=== PATIENT | female | born 1995 | race African-American/Black ===

== ENCOUNTER 2016-11-09 19:18 | Inpatient (IN) | payer OTHER ==
--- NOTE | ~2016-11-09 | DS ---
Unit #: [id number] #: [id number] Patient: CHEYENNE TREJO [id number] [place] [address] [id number] MR#: [id number] NAME: CHEYNENE TREJO. ROOM: P176 Age: 21 Sex: F Admission Date: 11/09/2016 : 1995 Discharge Date: 11/11/2016 Attending Physician: Moe Oliva M.D. Primary Care Physician: Primary Care Physician No DISCHARGE SUMMARY REASON FOR ADMISSION The patient is a 21-year-old female, admitted to the [address] [place] [address] unit with complaints of depressed mood and increased cannabis use. HOSPITAL COURSE The patient was admitted to [facility] unit and placed on suicide precautions. vitamins were continued as the patient is 7 weeks' . On the initial day of evaluation, this physician could not arouse the patient. Later that day, the patient did ask to leave the hospital, but agreed to remain until this physician could evaluate her on 11/11/2016. The patient was in brighter spirits and denied suicidal ideation. She was in agreement with the plan for followup in the intensive outpatient program provided by this facility given her first trimester status. No psychotropic medication was ordered. FINAL DIAGNOSES Major depressive disorder, single episode, moderate; intrauterine , 7-weeks' duration. DISPOSITION ON DISCHARGE The patient is discharged on the following medications: vitamins 1 daily. FOLLOWUP She will follow up through the auspices of the intensive outpatient program provided by this facility. PROGNOSIS Her prognosis is considered fair. ADDENDUM The patient's discharge diagnoses should also include cannabis use disorder. Dictated by... Moe Oliva M.D. CB/brian TD: 11/11/2016 21:09 JOB #: [id number] Unit #: [id number] #: [id number] Patient: CHEYENNE TREJO DISCHARGE SUMMARY Page 1 of 1 X Moe Oliva MD X DISCHARGE SUMMARY
--- NOTE | ~2016-11-09 | HP ---
Unit #: [id number] #: [id number] Patient: MIGUEL TREJO [id number] [place] [address] [id number] MR#: [id number] NAME: MIGUEL TREJO. ROOM: P176 Age: 21 Sex: F Admission Date: 11/09/2016 : 1995 Attending Physician: Moe Oliva M.D. Admitting Physician: Moe Oliva M.D. Primary Care Physician: Primary Care Physician No HISTORY AND PHYSICAL HISTORY OF PRESENT ILLNESS Miguel is a 21 year old admitted to [facility] with depression after verbalizing wanting to hurt herself. PAST MEDICAL HISTORY 1. Asthma 2. The patient reports she is seven weeks PAST SURGICAL HISTORY Appendectomy ALLERGIES No known drug allergies. SOCIAL HISTORY Smokes one-half pack per day. Drinks alcohol on occasion. Admits to using marijuana daily. FAMILY HISTORY Medically noncontributory. REVIEW OF SYSTEMS CONSTITUTIONAL: No fever or chills. HEENT: Denies any sore throat, ear pain or runny nose. CARDIOVASCULAR: Denies chest pain, irregular heart rhythm or palpitations. CHEST: Denies shortness of breath or cough. No hemoptysis. GASTROINTESTINAL: Denies nausea, vomiting, diarrhea or chronic constipation. ENDOCRINE: Denies history of increased thirst or urination. No recent significant weight loss or gain. GENITOURINARY: Denies dysuria, frequency, or hematuria. SKIN: Denies any rashes. HEMATOLOGIC: Denies history of increased bleeding or bruising. MUSCULOSKELETAL: Denies any hot, swollen joints. No generalized muscle pain. NEUROLOGIC: Denies problems with vision or speech. No frequent, severe headaches. No numbness, tingling or weakness in any extremities. Denies loss of bladder or bowel control. CURRENT MEDICATIONS 1. Multivitamin 1 q day 2. Milk of Magnesia p.r.n. Unit #: [id number] #: [id number] Patient: MIGUEL TREJO 3. Maalox p.r.n. 4. Tylenol p.r.n. PHYSICAL EXAMINATION GENERAL: Alert, well-nourished, in no apparent distress. VITAL SIGNS: Blood pressure 100/60, heart rate 88, respirations 16, temperature 98.6. WEIGHT: 162 pounds. HEIGHT: 5'2". SKIN: Warm and dry without rash or lesion. HEENT: Normocephalic. TMs not viewed. Oral and nasal passages clear. Conjunctivae clear. Pupils equal, round and reactive to light and accommodation. Extraocular movements intact. NECK: Supple without lymphadenopathy or thyromegaly. HEART: Regular rate and rhythm without murmur. LUNGS: Clear. ABDOMEN: Soft, nontender. : Not done. EXTREMITIES: No evidence of cyanosis, clubbing or edema. Moves all extremities without focal deficit. NEUROLOGICAL: Grossly within normal limits. Cranial Nerves: II: Visual vance are intact. III, IV AND : Extraocular movements are intact. Pupils are equal, round and reactive to light. V: Facial sensation is grossly normal. VII: Facial movements and expression are normal. VIII: Auditory acuity grossly intact. IX, X: Uvula is midline. Phonation is normal. XI: Patient shrugs shoulders and turns head normally. XII: Tongue protrudes in the midline. Sensory and Motor Function: Sensory and motor sensation is grossly normal. Motor: moves all extremities well. Coordination: Gait is normal. Deep Tendon Reflexes: Intact. IMPRESSION Psychiatric admission RECOMMENDATIONS PSYCHIATRIC: Per psychiatrist. MEDICAL: I see no contraindications to participating in facility's activities. MEDICAL PROGNOSIS Good. MEDICAL CONDITION Stable. Dictated by... Julissa Barger P.A.-C. for Ash Mauricio/nikki TD: 11/11/2016 01:18 JOB #: [id number] Unit #: [id number] #: [id number] Patient: MIGUEL TREJO HISTORY AND PHYSICAL Page 1 of 1 X Julissa Barger HISTORY AND PHYSICAL
--- NOTE | ~2016-11-09 | PA ---
Unit #: [id number] #: [id number] Patient: CHEYENNE TREJO [id number] [place] [address] [id number] MR#: [id number] NAME: CHEYENNE TREJO. ROOM: P176 Age: 21 Sex: F Admission Date: 11/09/2016 : 1995 Date of Assessment: 11/10/2016 Attending Physician: Moe Oliva M.D. Admitting Physician: Moe Oliva M.D. Primary Care Physician: Primary Care Physician No PSYCHIATRIC ASSESSMENT IDENTIFYING INFORMATION The patient is a 21-year-old female admitted to the [address] [place] [address] with increasing suicidal ideation with a plan to overdose. CHIEF COMPLAINT None given. INFORMANT Chart, the patient cannot be aroused for interview. HISTORY OF PRESENT ILLNESS The patient is a 21-year-old female admitted to this facility reporting increasing depression with suicidal ideation. The patient reports a history of multiple previous suicide attempts but does not allude to any psychiatric treatment. She is on no psychotropic medications at this time. She is prescribed medications for morning sickness and vitamins as she is currently . The patient reports that she lives with her fiance and two children age five and one. The patient reports that strain in her relationship with her significant other have caused increasing depression. She also reports grief over a recent miscarriage as well as the of her grandmother. The patient does admit to daily use of cannabis. She denies abuse of other psychoactive substances. PAST PSYCIATRIC HISTORY The patient has been in treatment at [facility] both as a child and more recently in 2016 but is presently under the care of no psychiatrist or (1)____ professional and is on no psychotropic medications. PAST MEDICAL HISTORY As noted previously the patient is the duration of which is unknown at this point. MEDICATIONS 1. Diclegis for morning sickness 2. vitamins ALLERGIES Latex FAMILY HISTORY Noncontributory SOCIAL HISTORY Unit #: [id number] #: [id number] Patient: CHEYENNE TREJO The patient lives with her fiance and two children. She reports cannabis use as noted previously. MENTAL STATUS EXAMINATION At this time reveals the patient to be a soundly sleeping female who appears to be in no physical distress. She cannot be aroused for interview despite multiple attempts to do so. ASSETS AND LIABILITIES ASSETS: To be assessed. LIABILITIES: Lack of resources. DIAGNOSTIC IMPRESSION 1. Major depressive disorder recurrent moderate. 2. Cannabis use disorder. 3. Intrauterine duration unknown. ASSETS AND LIABILITIES ASSETS: To be assessed. LIABILITIES: Lack of resources. TREATMENT PLAN The patient remains hospitalized for safety and stabilization. Once I am better able to interview the patient transfer to the [address] [place] [address] unit may be considered though she does seem to have a significant issue with cannabis abuse. Based on what we learned about the duration of the patient's an initiation of antidepressant medication may be considered. ESTIMATE LENGTH OF STAY IN THE HOSPITAL Five to seven days. Dictated by... Moe Oliva M.D. RIKY/nikki TD: 11/10/2016 21:55 JOB #: [id number] PSYCHIATRIC ASSESSMENT Page 1 of 1 X Moe Oliva MD X PSYCHIATRIC ASSESSMENT
[2016-11-10 09:51] LABS: BASOPHIL% 0.3 % (0-2.5); EOSINOPHIL% 0.6 % (0.0-7.0); HEMATOCRIT 35.2 % (35.0-45.0); HEMOGLOBIN 11.4 gm/dL (12.0-16.0); LYMPHOCYTE% 23.3 % (17.0-45.0); MEAN CELL VOLUME 89.3 FL (83-96); MEAN CORPUSCULAR HGB CONC 32.5 g/dL (30-36); MEAN PLATELET VOLUME 7.9 FL (6.5-11.5); MONOCYTE# 0.5 X10e3 (0-1.0); MONOCYTE% 6.3 % (3.0-12.0); NEUTROPHIL% 69.5 % (40-75); PLATELET COUNT 360 X10e3 (140-420); RED BLOOD COUNT 3.94 X10e (3.90-5.30); RED CELL DISTRIBUTION WIDTH 15.1 % (11.0-15.5); WHITE BLOOD COUNT 8.6 X10e3 (4.0-10.5)
[2016-11-10 10:00] LABS: DIFF IND NO
[2016-11-10 10:11] LABS: THYROID STIMULATING HORMONE 1.04 uIU/ml (0.34-5.60)
[2016-11-10 10:14] LABS: ALBUMIN SERUM 3.8 g/dL (3.5-5.0); BILIRUBIN,TOTAL 0.6 mg/dL (0.2-2.0); CALCIUM SERUM 9.3 mg/dL (8.4-10.2); CREATININE SERUM 0.5 mg/dL (0.6-1.4); GLOM FILT RATE Estimated 159.2 mL/min (>60); POTASSIUM 3.7 mmol/L (3.5-5.1); PROTEIN TOTAL SERUM 6.6 g/dL (6.0-8.3)
[2016-11-10 10:18] LABS: FREE THYROXIN (T4) 0.86 ng/dL (0.58-1.64)
[2016-11-10 12:47] LABS: URINE APPEARANCE CLOUDY; URINE BILIRUBIN NEG (NEG); URINE BLOOD 1+ (NEG); URINE COLOR YELLOW; URINE GLUCOSE NEG (NEG); URINE KETONE NEG (NEG); URINE LEUKOCYTE ESTERASE 2+ (NEG); URINE NITRATE POS (NEG); URINE PH 6.5 (5-8); URINE PROTEIN NEG (NEG)
[2016-11-10 12:55] LABS: URBCS1 AUWI 0-2 /[HPF] (0-2); URINE BACTERIA AUWI 4+ (NEGATIVE); URINE SQUAMOUS EPITHELIAL CELL OCC /[HPF]; UWBCS1 AUWI 25-50 (0-5)
[2016-11-10 13:13] LABS: AMPHETAMINE NEG (NEG); BARBITURATES NEG (NEG); BENZODIAZEPINES NEG (NEG); COCAINE NEG (NEG); MARIJUANA POS (NEG); OPIATES NEG (NEG); TRICYCLIC ANTIDEPRESSANTS NEG (NEG); U METHADONE NEG (NEG)
== END 2016-11-11 15:50 | DRG 885 ==
LOC: P1E 22:18
PROVIDERS: Specialist
DX: F33.1 Major depressive disorder, recurrent, moderate (principal); R45.851 Suicidal ideations; Z33.1 Pregnant state, incidental; Z91.040 Latex allergy status; F17.210 Nicotine dependence, cigarettes, uncomplicated; J45.909 Unspecified asthma, uncomplicated; F12.10 Cannabis abuse, uncomplicated
CPT/HCPCS: 80053; 80307; 81003; 84439; 84443; 84702; 85025